=== PATIENT | male | born 1960 | race Two or more races ===

== ENCOUNTER 2023-02-06 09:29 | Outpatient (OUT) | payer SELFPAY ==
[2023-02-06 10:36] LABS: Basophils Absolute Auto 0.1 10^3/uL (0.0-0.1); Basophils Percent Auto 0.6 % (0.2-2.0); Eosinophils Absolute Auto 0.3 10^3/uL (0.0-0.7); Eosinophils Percent Auto 2.9 % (0.9-7.0); Hematocrit 42.2 % (42.0-54.0); Hemoglobin 13.8 g/dL (14.0-18.0); Immature Granulocytes Abs Auto 0.07 10^3/uL (0.00-0.03); Immature Granulocytes Pct Auto 0.6 % (0.0-0.5); Lymphocytes Absolute Auto 2.5 10^3/uL (1.2-3.8); Lymphocytes Percent Auto 20.7 % (20.5-60.0); Mean Corpuscular HGB Conc 32.7 g/dL (29.9-35.2); Mean Corpuscular Hemoglobin 30.1 pg (25.9-34.0); Mean Corpuscular Volume 92.1 fL (80.0-94.0); Mean Platelet Volume 9.2 fL (9.5-13.5); Monocytes Absolute Auto 0.9 10^3/uL (0.3-0.8); Monocytes Percent Auto 7.3 % (1.7-12.0); Neutrophils Percent Auto 67.9 % (43.0-75.0); Platelet Count 318 10^3/uL (150-450); Red Blood Count 4.58 10^6/uL (4.70-6.10); Red Cell Distribution Width 13.3 % (11.0-15.0); White Blood Count 11.8 10^3/uL (4.0-11.0)
[2023-02-06 10:41] LABS: Anion Gap 10.9; BUN Creatinine Ratio 14.2; Calcium 9.1 mg/dL (8.5-10.1); Chloride 105 mmol/L (98-107); Estimated GFR (African America >60 (>=60); Estimated GFR (Non-African Ame >60 (>=60); Glucose 154 mg/dL (74-106); Potassium 4.9 mmol/L (3.5-5.1); Sodium 141 mmol/L (136-145)
[2023-02-06 10:45] LABS: INR 0.96; Partial Thromboplastin Time 25.3 sec (22.3-36.2); Prothrombin Time 10.2 sec (9.0-11.6)
== END 2023-02-06 09:30 | disposition home or self-care (01) ==
LOC: PST 09:34
PROVIDERS: Visit Provider Urology
DX: Z01.818 Encounter for other preprocedural examination (principal); N20.0 Calculus of kidney; E78.5 Hyperlipidemia, unspecified; I10 Essential (primary) hypertension; E11.9 Type 2 diabetes mellitus without complications; D64.9 Anemia, unspecified; J44.9 Chronic obstructive pulmonary disease, unspecified
CPT/HCPCS: 36415; 80048; 85025; 85610; 85730

== ENCOUNTER 2023-02-23 06:19 | Day surgery (SDC) | payer SELFPAY ==
[2023-02-06 10:29] VITALS: BP 144/85; PULSE 73; RESP 20; TEMP 36.3; O2SAT 97; BMI 50.8
[2023-02-23] VITALS (12 sets, daily range): BP systolic 115–179; BP diastolic 72–104; PULSE 20–83; RESP 13–22; TEMP 36–36.3; O2SAT 95–100; BMI 53.6
--- NOTE | 2023-02-23 06:45 | XR_ITS ---
[address] [address] Patient Name: CHE OWENS MRN: [id number] date: 1960 Sex: M Assigned Patient Location: [facility] Current Patient Location: [facility] Accession/Order Number: [id number] Exam Date: 02/23/2023 06:35 Report Date: 02/23/2023 07:20 At the request of: DEMARCUS VÁZQUEZ Procedure: XR abdomen 1V EXAMINATION: XR abdomen 1V HISTORY: kidney stones COMPARISON: No relevant comparison available. FINDINGS: KIDNEY/URETER - RIGHT: 11.6 mm right lower pole nephrolith KIDNEY/URETER - LEFT: No visible renal or ureteral calcifications. PELVIS: No visible ureteral calcifications. Any visible calcifications favor phleboliths. BOWEL: No abnormal dilation or deviation. BONES: No acute abnormality. Moderate degenerative changes of the spine and hips OTHER: Negative. No abnormal gaseous collections. XR/XR abdomen 1V IMPRESSION: 11.6 mm right nephrolith Electronically authenticated by: ANNETTE ALY Date: 02/23/2023 07:20
[2023-02-23 07:12] LABS: Glucometer 155 mg/dL (74-106)
[2023-02-23] MEDS: LACTATED RINGER'S SOLUTION 1,000 ML 50 ML IV (07:20)
[2023-02-23] MEDS: CEFAZOLIN SODIUM/DEXTROSE,ISO 1 GM/50 ML IV.SOLN IV (07:55)
--- NOTE | 2023-02-23 08:51 | P.URON_ITS ---
Urology Surgery Operative Note Operative Note Procedure Date: 02/23/23 Time Out Performed: yes Pre-op Diagnosis: right nephrolithiasis Post-op Diagnosis: same as pre-op Procedures performed: #1. Right ESWL. Anesthesia: GETA Primary Surgeon: Edson Alejandro Complications: none Estimated blood loss (mL): 0 Findings: large right lower pole renal calculus Specimens: none Indications for Procedures: this gentleman had a large stone burden in a bilateral fashion. His left side has been entirely taken care of. He now presents for right ESWL regarding his one and a half to 2 cm nonobstructing stone. He has signed an informed consent for ESWL after all risks were explained. He understands some of these risks include bleeding, perinephric hematoma, infection and anesthesia to name a few. Detailed description of Procedure: The patient was brought to the Operating Room and placed on Siemens electromagnetic lithotripsy treatment table in the supine position. SCDs were placed on their lower extremities and turned on and functioning during the entire case. Timeout was done by all parties in the room. We all agreed upon the patient's identification and the planned procedures for this patient. General Anesthesia was then administered via LMA. Treatment head was then brought to the patient's right side. While using flourscopy the stone was id entified and lined up into the crosshairs. We then began applying shocks.we started at power level II.0 and increased to a maximum of power level III.7. Intermittent fluoroscopy showed that the stone steadily fragmented. It began imploding and falling in on itself. We applied a total of 3000 shocks to this right renal stone. Our last fluoroscopic image showed no evidence of any formed stone remaining. There was a fair amount of stone debris and gravel in the lower pole. The procedure was then terminated. The anesthetic was then reversed. [facility] and wheeled to PACU in stable condition.
== END 2023-02-23 09:55 | disposition home or self-care (01) ==
PROVIDERS: Urology; Visit Provider Anesthesiology
PROC: (CPT 50590; principal; 2023-02-23 08:00)
DX: N20.0 Calculus of kidney (principal); E78.5 Hyperlipidemia, unspecified; I10 Essential (primary) hypertension; E11.9 Type 2 diabetes mellitus without complications; D64.9 Anemia, unspecified; E66.9 Obesity, unspecified; Z79.84 Long term (current) use of oral hypoglycemic drugs; Z79.899 Other long term (current) drug therapy; N40.1 Benign prostatic hyperplasia with lower urinary tract symptoms; R35.1 Nocturia; J43.2 Centrilobular emphysema; E66.01 Morbid (severe) obesity due to excess calories; Z68.43 Body mass index [BMI] 50.0-59.9, adult; M17.0 Bilateral primary osteoarthritis of knee; Z87.440 Personal history of urinary (tract) infections
CPT/HCPCS: 50590; 36415; 74018; 80048; 82948; 85025; 85610; 85730